=== PATIENT | female | born 1955 | race Caucasian/White ===

== ENCOUNTER 2017-01-27 13:55 | Emergency (ER) | payer MEDICAID, OTHER ==
[~2017-01-27] VITALS: Ht 157.5 cm; Wt 70.0 kg
[2017-01-27] MEDS ORDERED: UNKNOWN BP MED (15:13)
[2017-01-27 16:00] VITALS: BP 127/98
[2017-01-27] MEDS ORDERED: BACITRACIN ZINC OINT UDPKT TOP ONE (16:00)
[2017-01-27] MEDS ORDERED: KETOROLAC 60MG/2ML VIAL IM ONE (16:00)
[2017-01-27] MEDS ORDERED: LIDOCAINE HCL 1% 20ML VIAL (Pyxis) INJ INFIL ONE (16:00)
[2017-01-27] MEDS ORDERED: TETANUS, DIPHTHERIA, PERTUSSIS VAC/PF 0.5ML (>7YR OLD) IM ONE (16:00)
== END 2017-01-27 17:46 | disposition home or self-care (01) ==
LOC: ER 17:42
DX: S61.211A Laceration without foreign body of left index finger without damage to nail, initial encounter (principal); S61.213A Laceration without foreign body of left middle finger without damage to nail, initial encounter; W22.8XXA Striking against or struck by other objects, initial encounter; Y93.89 Activity, other specified; Y92.810 Car as the place of occurrence of the external cause
CPT/HCPCS: 12011; 73130; 90471; 90715; 96372; 99284; J1885; J3490

== ENCOUNTER 2017-02-03 12:16 | Emergency (ER) | payer MEDICAID ==
[~2017-02-03] VITALS: Ht 149.9 cm; Wt 77.0 kg
[~2017-02-03 12:16] MED LIST: UNKNOWN BP MED
[2017-02-03] MEDS ORDERED: IBUPROFEN 600MG TABLET PO ONE (13:45)
[2017-02-03 15:46] VITALS: BP 139/69
== END 2017-02-03 15:48 | disposition home or self-care (01) ==
LOC: ER 12:26
DX: Z48.02 Encounter for removal of sutures (principal)
CPT/HCPCS: 99283; Z7610

== ENCOUNTER 2017-09-14 18:38 | Emergency (ER) | payer MEDICAID ==
[~2017-09-14] VITALS: Ht 160 cm; Wt 75.0 kg
[2017-09-14 18:42] VITALS: BP 155/88
== END 2017-09-14 19:45 | disposition left against medical advice (07) ==
LOC: ER 18:43
DX: S51.851A Open bite of right forearm, initial encounter (principal); W54.0XXA Bitten by dog, initial encounter; Y93.9 Activity, unspecified; Y92.9 Unspecified place or not applicable; Z53.21 Procedure and treatment not carried out due to patient leaving prior to being seen by health care provider